=== PATIENT | female | born 1985 | race Caucasian/White ===

== ENCOUNTER → 2018-08-24 12:06 | Outpatient (CLI) | payer OTHER, SELFPAY ==
[2018-08-24 13:04] LABS: Add Manual Diff / Slide Review NO; Basophils Absolute Auto 0 /uL (0-100); Basophils Percent Auto 0.5 % (0-2); Eosinophils Absolute Auto 100 /uL (0-450); Eosinophils Percent Auto 0.9 % (2-4); Hematocrit 40.6 % (36-46); Hemoglobin 13.5 g/dL (12.0-16.0); Lymphocytes Absolute Auto 2600 /uL (1100-4500); Lymphocytes Percent Auto 28.4 % (25-40); Mean Corpuscular HGB Conc 33.2 % (30-36); Mean Corpuscular Hemoglobin 30.2 PG (26-34); Mean Corpuscular Volume 90.7 fL (80-100); Monocytes Absolute Auto 600 /uL (0-900); Neutrophils Absolute Auto 5800 /uL (1500-7000); Neutrophils Percent Auto 63.2 % (50-75); Platelet Count 260 X10^3/uL (150-400); Red Blood Cell Count 4.48 X10^6/uL (4.0-5.2); Red Cell Distribution Width 13.2 % (11.6-14.8); White Blood Cell Count 9.1 X10^3/uL (4.5-11.0)
[2018-08-24 13:04] LABS: Appearance Urine UA CLEAR; Bilirubin Urine UA NEGATIVE (NEGATIVE); Color Urine UA YELLOW; Glucose Urine UA NEGATIVE (Negative); Ketones Urine UA NEGATIVE (NEGATIVE); Leukocyte Esterase Urine UA NEGATIVE (NEGATIVE); Nitrite Urine UA NEGATIVE (Negative); Occult Blood Urine UA NEGATIVE (Negative); Protein Urine UA NEGATIVE (Negative); Specific Gravity Urine UA 1.025 (1.000-1.035); Urobilinogen Urine UA 0.2 E.U./dL (0.2); pH Urine UA 5.5 (4.5-8.0)
[2018-08-24 13:45] LABS: Thyroid Stimulating Hormone 1.65 uIU/mL (0.47-4.68)
[2018-08-24 18:29] LABS: Hepatitis B Surface Antigen NEGATIVE s/c (NEGATIVE); Rubella Antibody IgG 22.7 IU/mL (>15)
[2018-08-24 18:42] LABS: HIV 1 and 2 Antibody NEGATIVE (NEGATIVE); Hep C Virus Ab w/Reflex Quant NEGATIVE s/c (NEGATIVE)
[2018-08-26 14:36] LABS: RPR Screen Nonreactive (Nonreactive)
[2018-08-26 14:42] LABS: Varicella IgG Antibody < 135.00 Index (< 135.00)
== END ==
PROVIDERS: PCP Nurse Practitioner Family; Visit Provider Specialist
DX: Z34.01 Encounter for supervision of normal first pregnancy, first trimester (principal)
CPT/HCPCS: 36415; 80055; 81003; 84443; 86703; 86787; 86803; 86850; 86900; 86901; 87086

== ENCOUNTER → 2018-11-02 12:23 | Outpatient (CLI) | payer OTHER, SELFPAY ==
[2018-11-09 10:45] LABS: AFP, Serum 22.6 ng/mL; Calc Gestational Age 17.9; Cigarette Smoker N; Donated Egg NOT GIVEN; Donor Egg Age NOT GIVEN; Inhibin A, Dimeric 101 pg/mL; Maternal Weight 205 lbs; Number of Fetuses NOT GIVEN; Previous Pregnancy Down Syndro NOT GIVEN; hCG, MoM 1.24; hCG, Serum 25.6 IU/mL
== END ==
PROVIDERS: PCP Nurse Practitioner Family; Visit Provider Specialist
DX: Z34.82 Encounter for supervision of other normal pregnancy, second trimester (principal); Z3A.18 18 weeks gestation of pregnancy
CPT/HCPCS: 36415; 82105; 82677; 84702; 86336

== ENCOUNTER → 2018-11-17 10:19 | Outpatient (CLI) | payer OTHER, SELFPAY ==
--- NOTE | 2018-11-17 10:20 | DI.US.S_ITS ---
PROCEDURE: US OB >= 14 WEEKS FETUS INDICATIONS: ANATOMY SCAN OUTSIDE/PRIOR DATING DATA: Last menstrual period (LMP): Unknown. LMP-based estimated date of delivery (NICOLAS): Unknown. First dating scan (date and location): 08/24/18. Estimated date of delivery (NICOLAS) from first dating scan: 04/08/19. TECHNIQUE: Real-time scanning was performed of the fetus, with image documentation and biometric measurements. Endovaginal scanning: Not performed COMPARISON: [facility], , OB <= 14 WEEKS FETUS, 09/07/2018, 13:32. [facility], , OB <= 14 WEEKS FETUS, 08/24/2018, 8:07. [facility], , OB >= 14 WEEKS FETUS, 11/02/2018, 12:13. FINDINGS: General: A single living intrauterine gestation is present. Presentation: Vertex. Placenta: Placental position is anterior, without previa. Amniotic fluid index: 14.4 cm, normal range is 5-24 cm. heart rate: 157 beats per minute. Maternal cervical canal: 3.8 cm long. Normal lower limit is 2.5 cm. biometrics: Biparietal diameter: 4.7 cm, 20 weeks 2 days Head circumference: 17.1 cm, 19 weeks 5 days Abdominal circumference: 14.5 cm of 19 weeks 6 days Femur length: 3.0 cm, 19 weeks 3 days Estimated gestational age from initial scan: 19 weeks 2 days Composite gestational age from present scan: 19 weeks 5 days Estimated weight and percentile: 305 g, 67th percentile Measurement variability for biometric dating: +/- 7 days from 14 weeks to 15 weeks 6 days gestation, +/- 10 days from 16 weeks to 21 weeks 6 days gestation, +/- 2 weeks from 22 weeks to 27 weeks 6 days gestation, +/- 3 weeks for 28 weeks gestation or later. weight reference: 4500 g or EFW >90/95% is considered macrosomia or large for gestational age. EFW <10% is small for gestational age. EFW 5% or less is considered intra-uterine growth restriction. Anatomic survey: Neuro: Ventricles are non-dilated at less than 10 mm. Cisterna magna is normal at 3-11 mm. Cerebellum is normal in size and morphology. Nuchal skin fold: Normal at less than 6 mm between 14-21 weeks gestational age. Face: Nose and lips, facial profile are normal. Spine: No evidence for spina bifida. Heart: 4-chambered heart is present, with normal ventricular outflow tracts. Diaphragm: Diaphragm is intact. Stomach: Left-sided stomach is present. Kidneys: No hydronephrosis. Normal is less than 5 mm in 2nd trimester, less than 7 mm in 3rd trimester. Cord: 3-vessel cord has orthotopic insertion. Bladder: Normal in size. Extremities: All 4 extremities identified. IMPRESSION: Single living intrauterine fetus in vertex presentation. Expected interval growth Normal anatomic survey. Dictated by: Jeremiah Ahumada M.D. on 11/17/2018 at 12:43 Approved by: Jeremiah Ahumada M.D. on 11/17/2018 at 12:46
== END ==
PROVIDERS: PCP Nurse Practitioner Family; Visit Provider Specialist
DX: Z36.89 Encounter for other specified antenatal screening (principal); Z3A.19 19 weeks gestation of pregnancy
CPT/HCPCS: 76811

== ENCOUNTER → 2018-12-24 10:12 | Outpatient (CLI) | payer OTHER, SELFPAY ==
[2018-12-24 12:21] LABS: GTT (PREG) 1 Hour PP 50gm Dose 133 mg/dL (76-139)
== END ==
PROVIDERS: PCP Nurse Practitioner Family; Visit Provider Specialist
DX: Z34.82 Encounter for supervision of other normal pregnancy, second trimester (principal); Z3A.22 22 weeks gestation of pregnancy
CPT/HCPCS: 82950

== ENCOUNTER → 2019-01-04 15:46 | Outpatient (CLI) | payer OTHER, SELFPAY ==
[2019-01-04 16:03] LABS: Hematocrit 35.7 % (36-46); Hemoglobin 12.3 g/dL (12.0-16.0)
== END ==
PROVIDERS: Family Provider Nurse Practitioner Family; PCP Nurse Practitioner Family; Visit Provider Specialist
DX: Z34.82 Encounter for supervision of other normal pregnancy, second trimester (principal); Z3A.26 26 weeks gestation of pregnancy
CPT/HCPCS: 36415; 85014; 85018

== ENCOUNTER 2019-02-10 15:09 | Outpatient (CLI) | payer OTHER, SELFPAY ==
--- NOTE | 2019-02-10 16:05 | PM.OBTRLD ---
Visit Information Visit Information Date of evaluation: 02/10/19 Primary OB Provider: Stacey Harry Reason for Evaluation: Yes non-stress test non-stress test reason: decreased movement Vital Signs Vital Signs: Blood pressure 133/86, pulse of 81, temperature 36.5? [facility] Medical History (Updated 02/10/19 @ 16:07 by Stacey Harry MD) Human papilloma virus (Resolved ~2012) PCOS (polycystic ovarian syndrome) (Chronic) Surgical History (Updated 09/06/18 @ 22:23 by Cinthia Goldberg) Anesthesia (Resolved) History of dilatation and curettage (Resolved ~04/2018) Family History (Updated 09/06/18 @ 22:24 by Cinthia Goldberg) Father Hypertension Grandfather Parkinson's disease Social History Smoking Status: Never smoker Evaluation Evaluation Baseline heart rate: 130 Variability: Moderate (11-25) monitor accelerations: Present monitor decelerations: Absent Contraction Frequency (minutes): 0 Diagnosis, Plan/Disposition Final Diagnosis (1) Decreased movement: Current Visit: Yes Status: Acute (2) 32 weeks gestation of : Current Visit: Yes Status: Acute Plan/Disposition Plan: Reassurance keep routine OB appointment in 5 days. Return if any concerns prior to that OB Disposition: home
== END 2019-02-10 16:17 | disposition home or self-care (01) ==
LOC: LABOR 15:51 → OB 02-13 08:20
PROVIDERS: Family Provider Nurse Practitioner Family; PCP Nurse Practitioner Family; Visit Provider Specialist
DX: O36.8130 Decreased fetal movements, third trimester, not applicable or unspecified (principal); Z3A.32 32 weeks gestation of pregnancy
CPT/HCPCS: 59025; G0378; G0379

== ENCOUNTER 2019-02-22 17:31 | Outpatient (CLI) | payer OTHER, SELFPAY ==
[2019-02-22 17:42] LABS: Appearance Urine UA CLEAR; Bilirubin Urine UA NEGATIVE (NEGATIVE); Color Urine UA YELLOW; Glucose Urine UA NEGATIVE (Negative); Ketones Urine UA NEGATIVE (NEGATIVE); Leukocyte Esterase Urine UA NEGATIVE (NEGATIVE); Nitrite Urine UA NEGATIVE (Negative); Occult Blood Urine UA NEGATIVE (Negative); Protein Urine UA NEGATIVE (Negative); Urobilinogen Urine UA 0.2 E.U./dL (0.2)
[2019-02-22 17:45] LABS: pH Urine UA 6.5 (4.5-8.0)
== END 2019-02-22 18:40 | disposition home or self-care (01) ==
LOC: LABOR 18:20 → OB 02-23 11:48
PROVIDERS: Family Medicine; Family Provider Nurse Practitioner Family; PCP Nurse Practitioner Family; Visit Provider Specialist
DX: O26.893 Other specified pregnancy related conditions, third trimester (principal); R03.0 Elevated blood-pressure reading, without diagnosis of hypertension; Z3A.33 33 weeks gestation of pregnancy
CPT/HCPCS: 59025; 81003; G0378; G0379

== ENCOUNTER → 2019-03-08 15:40 | Outpatient (CLI) | payer OTHER, SELFPAY ==
[2019-03-09 13:05] LABS: Strep Grp B PCR NEG for Grp B Strep
== END ==
PROVIDERS: Family Provider Nurse Practitioner Family; PCP Nurse Practitioner Family; Visit Provider Specialist
DX: Z34.83 Encounter for supervision of other normal pregnancy, third trimester (principal)
CPT/HCPCS: 87653

== ENCOUNTER 2019-03-31 16:20 | Inpatient (IN) | payer OTHER, SELFPAY ==
[2019-03-31 16:49] LABS: Add Manual Diff / Slide Review NO; Basophils Absolute Auto 0 /uL (0-100); Basophils Percent Auto 0.3 % (0-2); Eosinophils Absolute Auto 100 /uL (0-450); Eosinophils Percent Auto 0.5 % (2-4); Hematocrit 37.4 % (36-46); Hemoglobin 12.8 g/dL (12.0-16.0); Lymphocytes Absolute Auto 2400 /uL (1100-4500); Lymphocytes Percent Auto 21.7 % (25-40); Mean Corpuscular HGB Conc 34.3 % (30-36); Mean Corpuscular Hemoglobin 30.4 PG (26-34); Mean Corpuscular Volume 88.7 fL (80-100); Monocytes Absolute Auto 700 /uL (0-900); Monocytes Percent Auto 6.1 % (3-14); Neutrophils Absolute Auto 7800 /uL (1500-7000); Neutrophils Percent Auto 71.4 % (50-75); Platelet Count 263 X10^3/uL (150-400); Red Blood Cell Count 4.22 X10^6/uL (4.0-5.2); Red Cell Distribution Width 13.8 % (11.6-14.8); White Blood Cell Count 10.9 X10^3/uL (4.5-11.0)
[2019-03-31 17:09] LABS: Alanine Aminotransferase 16 IU/L (<35); Albumin Globulin Ratio 1.2 (1.0-2.8); Alkaline Phosphatase 134 U/L (38-126); Aspartate Aminotransferase 25 IU/L (14-36); BUN Creatinine Ratio 21.7 (6-22); Bilirubin Total 0.3 mg/dL (0.2-1.3); Blood Urea Nitrogen 13 mg/dL (7-17); Calcium 9.5 mg/dL (8.4-10.2); Carbon Dioxide 21 mmol/L (22-32); Chloride 102 mmol/L (98-107); Estimated Glomerular Filt Rate > 60.0 mL/min (>60); Globulin 3.4 g/dL (1.7-4.1); Glucose 120 mg/dL (70-100); HEMOLYSIS < 15 (0-50); Potassium 4.4 mmol/L (3.4-5.1); Sodium 135 mmol/L (137-145); Total Protein 7.4 g/dL (6.3-8.2); Uric Acid 4.2 mg/dL (2.5-6.2)
--- NOTE | 2019-03-31 17:22 | PM.OBHP.1 ---
OB HPI Date/Time Date of admission: 03/31/19 Date Patient Seen: 03/31/19 Time Patient Seen: 17:22 History of Present Condition Chief complaint: OBSERVATION : 2 Para: 0 Estimated Date of Delivery: 04/06/19 Estimated Gestational Age (weeks): 39 Narrative: Nu Harris is a 33 year old female admitted for hypertension at 39 weeks Indications Indication for induction OB: medical complication (Hypertension without other evidence of preeclampsia) History of Present care: good care, initiated at week # (9) and pounds weight gain (37) Dating criteria: LMP confirmed by 1st trimester US Ultrasounds: normal mid trimester US Obstetrical complications: gestational hypertension Medical complications: none Preadmission Labs Blood type: AB (+) positive -: Antibody screen: negative, GBS status: negative, HBsAG: negative, HIV: negative and RPR/VDLR: negative -: Chlamydia screen: not detected and Gonorrhea screen: not detected -: Rubella: immune and Varicella: not immune HCAB: negative PAP: Normal Quad screen: Normal 1 hr GTT: 133 Evaluation Evaluation Baseline heart rate: 140 Variability: Moderate (11-25) monitor accelerations: Present monitor decelerations: Absent Contraction Frequency (minutes): 0 Category of Tracing: I Cervical dilation (cm): 1 Cervical effacement (%): 0 station: -2 Laboratory results: Laboratory Tests 03/31/19 03/31/19 16:42 16:42 WBC 10.9 RBC 4.22 Hgb 12.8 Hct 37.4 MCV 88.7 MCH 30.4 MCHC 34.3 RDW 13.8 Plt Count 263 Neut % (Auto) 71.4 Lymph % (Auto) 21.7 L [place] % (Auto) 6.1 Eos % (Auto) 0.5 L Baso % (Auto) 0.3 Neut # (Auto) 7800 H Lymph # (Auto) 2400 [place] # (Auto) 700 Eos # (Auto) 100 Baso # (Auto) 0 Sodium 135 L Potassium 4.4 Chloride 102 Carbon Dioxide 21 L BUN 13 Creatinine 0.60 Estimated GFR > 60.0 BUN/Creatinine Ratio 21.7 Glucose 120 H Uric Acid 4.2 Calcium 9.5 Total Bilirubin 0.3 AST 25 ALT 16 Alkaline Phosphatase 134 H Total Protein 7.4 Albumin 4.0 Globulin 3.4 Albumin/Globulin Ratio 1.2 PFSH Medical History (Updated 03/31/19 @ 16:19 by Stacey Harry MD) Human papilloma virus (Resolved ~2012) PCOS (polycystic ovarian syndrome) (Chronic) Surgical History (Updated 09/06/18 @ 22:23 by Cinthia Goldberg) Anesthesia (Resolved) History of dilatation and curettage (Resolved ~04/2018) Family History (Updated 09/06/18 @ 22:24 by Cinthia Goldberg) Father Hypertension Grandfather Parkinson's disease Social History Smoking Status: Never smoker Meds Home Medications and Allergies Home Medications Medication Instructions Recorded Confirmed Type vitamins no.121-iron 28 tab PO DAILY tab 08/24/18 08/24/18 History mg-folic acid 800 mcg tablet butalbital 50 mg-acetaminophen 300 1 cap PO Q4H PRN #20 cap 10/05/18 Rx mg-caffeine 40 mg-codeine 30 mg cap Double Electric Breast Pump and #1 ea 12/07/18 Rx supplies Allergies Allergy/AdvReac Type Severity Reaction Status Date / Time codeine Allergy Intermediate cold sweats Verified 08/24/18 07:57 Penicillins Allergy Intermediate rash Verified 08/24/18 07:57 acetaminophen [From Vicodin] AdvReac Intermediate Cold sweats Verified 08/24/18 12:09 hydrocodone [From Vicodin] AdvReac Intermediate Cold sweats Verified 08/24/18 12:09 Review of Systems Review of Systems Narrative: Patient denies headaches, scotomata, epigastric pain. No leakage of fluid. No regular contractions. Good movement. ROS Unobtainable: All systems reviewed & are unremarkable except as noted in HPI and below Exam Vital Signs (past 8 hours): Blood pressure 140/102, Narrative Exam Narrative: HEENT exam within normal limits. Lungs are clear to auscultation and percussion. Heart is regular rate and rhythm no S3-S4 or murmurs. Abdomen is soft, nontender. Infant is vertex. Extremities with trace edema and nontender. Objective Labs Result Diagrams: 03/31/19 16:42 03/31/19 16:42 Labs: Laboratory Results - last 24 hr 03/31/19 03/31/19 16:42 16:42 WBC 10.9 RBC 4.22 Hgb 12.8 Hct 37.4 MCV 88.7 MCH 30.4 MCHC 34.3 RDW 13.8 Plt Count 263 Neut % (Auto) 71.4 Lymph % (Auto) 21.7 L [place] % (Auto) 6.1 Eos % (Auto) 0.5 L Baso % (Auto) 0.3 Neut # (Auto) 7800 H Lymph # (Auto) 2400 [place] # (Auto) 700 Eos # (Auto) 100 Baso # (Auto) 0 Sodium 135 L Potassium 4.4 Chloride 102 Carbon Dioxide 21 L BUN 13 Creatinine 0.60 Estimated GFR > 60.0 BUN/Creatinine Ratio 21.7 Glucose 120 H Uric Acid 4.2 Calcium 9.5 Total Bilirubin 0.3 AST 25 ALT 16 Alkaline Phosphatase 134 H Total Protein 7.4 Albumin 4.0 Globulin 3.4 Albumin/Globulin Ratio 1.2 Assessment and Plan Assessment and Plan Assessment and Plan narrative: 39 week gestation with hypertension but no other signs or symptoms of preeclampsia. Non favorable cervix. Will admit for Prostin followed by Pitocin induction. Monitor for evidence of preeclampsia.
[2019-03-31 17:29] VITALS: BP 144/102; PULSE 102
[2019-03-31] MEDS: LABETALOL 100 MG TABLET PO (17:29)
[2019-03-31 19:02] VITALS: BP 140/98
[2019-03-31] MEDS: miSOPROStoL 25 MCG TABLET VAG (20:17)
[2019-03-31 23:51] VITALS: BP 118/71; PULSE 88; RESP 16
[2019-04-01] MEDS: miSOPROStoL 25 MCG TABLET VAG ×2 (00:16→04:20)
[2019-04-01] MEDS: ACETAMINOPHEN 325 MG TABLET 650 MG PO (00:22)
[2019-04-01] MEDS: LACTATED RINGERS 1,000 ML 100 ML IV (09:05)
[2019-04-01] MEDS: OXYTOCIN PREMIX 30 UNIT/500 ML PLAST..BAG IV (09:34)
--- NOTE | 2019-04-01 22:17 | P.PCNOB_ITS ---
Events: Induced HTN Labor & Delivery Delivery date: 04/01/19 Intrapartal events: None Cervical ripening method: per misoprostal protocol Induction method: per pitocin protocol Delivery monitor: external FHT and external uterine Route of delivery: L&D Laceration Description: Vaginal - 1st Degree Delivery repair: chromic (3 0) Estimated blood loss (mL): 150 Anesthesia type: Epidural Narrative: Patient was admitted to Labor and delivery with increasing blood pressures without other signs or symptoms of preeclampsia. She received prostate gland in for cervical ripening. She was started on Pitocin. She had spontaneous rupture membranes with clear fluid. She received epidural catheter for pain control. heart tones category 1 to category 2 throughout labor. She had a spontaneous vaginal delivery. The viable female infant had a nuchal cord and compound presentation with the hand. The was placed on maternal abdomen after the cord stopped pulsating the cord was clamped, cut, and cord bloods obtained. There were no cervical or perineal tears. A first-degree vaginal tear was repaired with 3 0 chromic suture. Both mother doing well. [place] Baby 1: Infant gender: Female Presentation: vertex position: Right Occiput Anterior Placenta delivery description: Spontaneous cord vessel description: Nuchal Cord score (1 min): 8 score (5 min): 9 Plan for aftercare: Routine care
[2019-04-01] MEDS: IBUPROFEN 600 MG TABLET PO (23:45)
[2019-04-02] MEDS: IBUPROFEN 600 MG TABLET PO ×3 (05:43→21:44)
[2019-04-02 06:12] LABS: Add Manual Diff / Slide Review NO; Basophils Absolute Auto 100 /uL (0-100); Basophils Percent Auto 0.7 % (0-2); Eosinophils Absolute Auto 100 /uL (0-450); Eosinophils Percent Auto 0.5 % (2-4); Hematocrit 33.6 % (36-46); Hemoglobin 11.6 g/dL (12.0-16.0); Lymphocytes Absolute Auto 2700 /uL (1100-4500); Lymphocytes Percent Auto 16.5 % (25-40); Mean Corpuscular HGB Conc 34.5 % (30-36); Mean Corpuscular Hemoglobin 30.2 PG (26-34); Mean Corpuscular Volume 87.4 fL (80-100); Monocytes Absolute Auto 1400 /uL (0-900); Monocytes Percent Auto 8.4 % (3-14); Neutrophils Absolute Auto 12000 /uL (1500-7000); Neutrophils Percent Auto 73.9 % (50-75); Platelet Count 235 X10^3/uL (150-400); Red Blood Cell Count 3.84 X10^6/uL (4.0-5.2); Red Cell Distribution Width 14.1 % (11.6-14.8); White Blood Cell Count 16.3 X10^3/uL (4.5-11.0)
--- NOTE | 2019-04-02 10:32 | PM.OBPN.1 ---
Subjective - OB Subjective Patient comments: no complaints [place] baby status: doing well feeding status: exclusively breast feeding Date Patient Seen: 04/02/19 Time Patient Seen: 10:32 Interval history: Patient is 12 hours post vaginal delivery doing well. She denies any signs or symptoms of preeclampsia. She is breast-feeding. She has minimal pain. Minimal bleeding. She is ambulatory. Exam Vital Signs (past 8 hours): Blood pressure 109/76 with 1 increased blood pressure 170/83, pulse of 109, temperature 97.1? Narrative Exam Narrative: Abdomen is soft, nontender. Uterus is firm, at U, nontender. Extremities without edema and nontender. Mild lochia. Objective Labs Result Diagrams: 04/02/19 06:00 03/31/19 16:42 Labs: Laboratory Results - last 24 hr 04/02/19 06:00 WBC 16.3 H RBC 3.84 L Hgb 11.6 L Hct 33.6 L MCV 87.4 MCH 30.2 MCHC 34.5 RDW 14.1 Plt Count 235 Neut % (Auto) 73.9 Lymph % (Auto) 16.5 L [place] % (Auto) 8.4 Eos % (Auto) 0.5 L Baso % (Auto) 0.7 Neut # (Auto) 94570 H Lymph # (Auto) 2700 [place] # (Auto) 1400 H Eos # (Auto) 100 Baso # (Auto) 100 Assessment & Plan Assessment and Plan (1) Vaginal delivery: Status: Acute Current Visit: Yes (2) Hypertension affecting in third trimester: Status: Acute Assessment and plan: Patient is doing well post vaginal delivery. Her blood pressures are good. Will monitor until a.m.. Current Visit: No Plan day: 1 plan OB: routine care Time Spent With Patient Time: Total time spent is greater than 50% in coordination of care (as documented) at patient's floor/unit and/or counseling patient: Time with patient: less than 15 minutes
[2019-04-03] MEDS: IBUPROFEN 600 MG TABLET PO ×2 (04:02→10:04)
--- NOTE | 2019-04-03 07:41 | PM.OBDS.1 ---
Discharge Providers Provider Date of admission: 03/31/19 16:20 Discharge Date: 04/03/19 Primary care physician: GALDINO Altman Consults: 03/31/19 17:34 Consult to Anesthesiology Urgent Comment: Consulting Provider: Anesthesiologist Reason for consultation: Epidural Has provider been notified: No 04/02/19 22:13 Consult to Operations Project Manager Routine Comment: Discharge provider: Stacey Harry MD Summary Hospital Course Date Patient Seen: 04/03/19 Time Patient Seen: 07:41 Procedures: Prostin followed by Pitocin induction, epidural catheter, spontaneous vaginal delivery, repair of first-degree vaginal tear Hospital Course: Patient was admitted for elevated blood pressure for induction. She received oral labetalol for blood pressure control. After her Prostin followed by Pitocin she had a vaginal delivery. Patient's blood pressures have remained reasonable without medication. No signs or symptoms of preeclampsia. Patient is urinating well, ambulatory, and pain under control. Peripartum Data Delivery Method: Natural Vaginal Laceration description: Vaginal - 1st Degree Procedures: Prostin followed by Pitocin induction, epidural catheter, vaginal delivery, repair of first-degree vaginal tear. complications: none 1: Gender: Female Disposition of : home Discharge Diagnosis (1) Vaginal delivery: Status: Acute (2) Hypertension affecting in third trimester: Status: Acute Status at Discharge Cognitive/behavioral status at discharge: oriented Functional status at discharge: independent ambulation Overall status at discharge: patient is progressing back to baseline Time Spent with Patient Time attestation: Total time spent providing and/or coordinating discharge services: Time spent: Less than 30 minutes Objective Labs Result Diagrams: 04/02/19 06:00 03/31/19 16:42 Exam Vital Signs (past 8 hours): Blood pressure 120/84, pulse of 77, temperature 97.4? Narrative Exam Narrative: Abdomen is soft, nontender. Uterus is firm, at U, nontender. Mild lochia. Extremities without edema and nontender. Patient is AB positive and rubella immune. She received Tdap in the 3rd trimester. Discharge Plan Discharge Plan Patient Disposition: Home Discharge orders & Medications Prescriptions: New ibuprofen 600 mg Tablet 600 mg PO Q6HR PRN (Reason: Pain, Mild (1-3)) Qty: 20 RF: 0 Continued PNV no.203-diek-egpwy acid 28 mg iron- 800 mcg tablet 1 tab PO DAILY RF: 0 No Action (DME) Double Electric Breast Pump and supplies Qty: 1 RF: 0 Follow up/Referrals: Alisha Serra ARNP [Primary Care Provider] - Stacey Harry MD [Physician] - 3-5 Days (BP check, also 4 week exam) Diet/Activity/Treatments Activity: Nothing in vagina for 4 weeks Skin/Wound/Dressing Care Report to your healthcare provider any signs of infection, such as:: chills, fever and increased pain Discharge Data Primary Care Provider: Alisha Serra
[2019-04-03 09:34] VITALS: BP 112/67; PULSE 75; RESP 16; TEMP 36.2
[2019-04-03] MEDS: DOCUSATE 100 MG CAPSULE PO (10:04)
[2019-04-03] MEDS: DERMOPLAST SPRAY 20% 60 ML 1 SPRAY TOP (10:04)
== END 2019-04-03 11:41 | disposition home or self-care (01) | DRG 807 ==
PROVIDERS: Admitting Provider Specialist; Family Provider Nurse Practitioner Family; PCP Nurse Practitioner Family; Visit Provider Specialist
DX: O13.4 Gestational [pregnancy-induced] hypertension without significant proteinuria, complicating childbirth (principal); Z37.0 Single live birth; Z3A.39 39 weeks gestation of pregnancy; O70.1 Second degree perineal laceration during delivery; O69.81X0 Labor and delivery complicated by cord around neck, without compression, not applicable or unspecified; O32.6XX0 Maternal care for compound presentation, not applicable or unspecified
CPT/HCPCS: 01967; 36415; 59025; 59050; 59400; 80053; 84550; 85025; 86850; 86900; 86901; G0379; J2590

== ENCOUNTER → 2021-02-13 09:08 | Outpatient (CLI) | payer OTHER, SELFPAY ==
--- NOTE | 2021-02-13 | DI.US.S_ITS ---
PROCEDURE: US OB <= 14 WEEKS FETUS INDICATIONS: DATING OUTSIDE/PRIOR DATING DATA: Last menstrual period (LMP): Unknown. First dating scan (date and location): [facility]; February 13, 2021: Estimated date of delivery (NICOLAS) from first dating scan: September 30, 2021. TECHNIQUE: Real-time scanning was performed of the fetus and maternal pelvic organs, with image documentation. Endovaginal scanning was also performed to better visualize the fetus and maternal ovaries. COMPARISON: [facility], US, US OB <= 14 WEEKS FETUS, 09/07/2018, 13:32. FINDINGS: Embryo: The mean crown-rump length measures 1.1 cm, compatible with a 7 week, 2 day gestation. Heart rate: 160 beats per minute Measurement variability in dating: +/- 4 weeks by LMP, +/- 7 days by mean sac diameter (use before 6 weeks gestation if crown-rump length not able to be measured), +/- 5 days by crown-rump length (up to 8 weeks 6 days gestation), +/- 7 days by crown-rump length (up to 13 weeks 6 days gestation). Maternal organs: Hypoechoic lesion adjacent to the gestational sac measuring up to 8.5 mm, compatible with a subchorionic hemorrhage. Echogenic lesion in the right ovary, measuring up to 1.9 cm, likely representing a corpus luteum. The left ovary is unremarkable. IMPRESSION: 1. Early single intrauterine gestation with adjacent subchorionic hemorrhage as detailed above. Dictated by: Tristian Shoemaker M.D. on 02/13/2021 at 12:51 Approved by: Tristian Shoemaker M.D. on 02/13/2021 at 12:55
== END ==
PROVIDERS: Family Provider Nurse Practitioner Family; PCP Nurse Practitioner Family; Referring Provider Nurse Practitioner Obstetrics & Gynecology; Visit Provider Nurse Practitioner Obstetrics & Gynecology
DX: Z36.87 Encounter for antenatal screening for uncertain dates (principal); O20.9 Hemorrhage in early pregnancy, unspecified; Z3A.01 Less than 8 weeks gestation of pregnancy
CPT/HCPCS: 76801; 76817

== ENCOUNTER → 2021-05-12 08:01 | Outpatient (CLI) | payer OTHER, SELFPAY ==
[2021-05-12 09:09] LABS: Glucose Fasting 89 mg/dL (70-100)
[2021-05-12 09:54] LABS: Glucose 1 Hour 115 mg/dL (70-170)
[2021-05-12 10:24] LABS: Glucose Tol Interpretation INTERPRETATION
[2021-05-12 10:50] LABS: Glucose 2 Hour 99 mg/dL (70-140)
== END ==
PROVIDERS: Family Provider Nurse Practitioner Family; PCP Nurse Practitioner Family; Referring Provider Nurse Practitioner Obstetrics & Gynecology; Visit Provider Nurse Practitioner Obstetrics & Gynecology
DX: Z34.90 Encounter for supervision of normal pregnancy, unspecified, unspecified trimester (principal); Z3A.19 19 weeks gestation of pregnancy
CPT/HCPCS: 36415; 82951; 82952

== ENCOUNTER → 2021-05-14 10:40 | Outpatient (CLI) | payer OTHER, SELFPAY ==
--- NOTE | 2021-05-14 10:42 | DI.US.S_ITS ---
PROCEDURE: US OB >= 14 WEEKS FETUS INDICATIONS: 20 WEEK ANATOMY SCAN OUTSIDE/PRIOR DATING DATA: Last menstrual period (LMP): Not available. LMP-based estimated date of delivery (NICOLAS): Not available. First dating scan (date and location): 02/13/2021 at . Estimated date of delivery (NICOLAS) from first dating scan: 09/30/2021. The calculations are made using the ultrasound NICOLAS of 09/30/2021. TECHNIQUE: Real-time scanning was performed of the fetus, with image documentation and biometric measurements. Endovaginal scanning: Not performed COMPARISON: [facility], , OB >= 14 WEEKS FETUS, 02/15/2019, 15:43. [facility], OB <= 14 WEEKS FETUS, 02/13/2021, 9:22. [facility], , OB >= 14 WEEKS FETUS, 01/04/2019, 15:21. FINDINGS: Suboptimally examination due to patient's body habitus. General: A single living intrauterine gestation is present. Presentation: Vertex. Placenta: Placental position is anterior , without previa. Amniotic fluid index: 13.5 cm, normal range is 5-24 cm. Single deepest vertical pocket is 3.6 cm. heart rate: 157 beats per minute. Maternal cervical canal: 4.6 cm long. Normal lower limit is 2.5 cm. biometrics: Biparietal diameter: 21 weeks 2 days Head circumference: 21 weeks 0 day Abdominal circumference: 20 weeks 3 days Femur length: 20 weeks 2 days Clinically estimated gestational age: Not available. Composite gestational age from present scan: 20 weeks 5 days Estimated weight and percentile: 354 g Anatomic survey: Neuro: Ventricles are non-dilated at less than 10 mm. Cisterna magna is normal at 3-11 mm. Cerebellum is normal in size and morphology. Nuchal skin fold: Normal at less than 6 mm between 14-21 weeks gestational age. Face: Nose and lips, facial profile are normal. Spine: No evidence for spina bifida. Heart: 4-chambered heart is present, with normal ventricular outflow tracts. Diaphragm: Diaphragm is intact. Stomach: Left-sided stomach is present. Kidneys: No hydronephrosis. Normal is less than 5 mm in 2nd trimester, less than 7 mm in 3rd trimester. Cord: Question superior marginal cord insertion. 3-vessel cord has orthotopic insertion. Bladder: Normal in size. Extremities: All 4 extremities identified. IMPRESSION: 1. A single living intrauterine gestation with appropriate interval growth. 2. Question superior marginal cord insertion. 3. Otherwise normal anatomic survey. We strive to produce accurate, complete, and clear reports of imaging services. To assist us in improving patient care, this report was composed using standard report templates and voice recognition software. Therefore, it may contain abnormal punctuation, insertions and/or omissions. Occasional wrong-word or sound-alike substitutions may occur. Though we review the report and make efforts to correct it, we do recommend that the report be read carefully in proper context to recognize any text inaccuracies. Dictated by: Sebastien Garg M.D. on 05/14/2021 at 16:14 Approved by: Sebastien Garg M.D. on 05/16/2021 at 17:33
== END ==
PROVIDERS: Family Provider Nurse Practitioner Family; PCP Nurse Practitioner Family; Referring Provider Nurse Practitioner Obstetrics & Gynecology; Visit Provider Nurse Practitioner Obstetrics & Gynecology
DX: Z34.92 Encounter for supervision of normal pregnancy, unspecified, second trimester (principal); Z3A.20 20 weeks gestation of pregnancy
CPT/HCPCS: 76811

== ENCOUNTER → 2021-07-09 08:05 | Outpatient (CLI) | payer OTHER, SELFPAY ==
[2021-07-09 08:47] LABS: Hematocrit 36.1 % (36-46); Hemoglobin 12.4 g/dL (12.0-16.0); Mean Corpuscular HGB Conc 34.4 % (30-36); Mean Corpuscular Hemoglobin 30.6 PG (26-34); Mean Corpuscular Volume 88.9 fL (80-100); Platelet Count 263 X10^3/uL (150-400); Red Blood Cell Count 4.06 X10^6/uL (4.0-5.2); Red Cell Distribution Width 13.9 % (11.6-14.8); White Blood Cell Count 10.3 X10^3/uL (4.5-11.0)
[2021-07-09 09:05] LABS: Glucose Fasting 87 mg/dL (70-100)
[2021-07-09 10:27] LABS: Glucose Tol Interpretation INTERPRETATION
[2021-07-09 10:42] LABS: Glucose 1 Hour 127 mg/dL (70-170)
[2021-07-09 12:38] LABS: Glucose 2 Hour 112 mg/dL (70-140)
== END ==
PROVIDERS: Family Provider Nurse Practitioner Family; PCP Nurse Practitioner Family; Referring Provider Nurse Practitioner Obstetrics & Gynecology; Visit Provider Nurse Practitioner Obstetrics & Gynecology
DX: Z34.90 Encounter for supervision of normal pregnancy, unspecified, unspecified trimester (principal); Z3A.26 26 weeks gestation of pregnancy
CPT/HCPCS: 36415; 82951; 82952; 85027

== ENCOUNTER → 2021-09-03 19:22 | Outpatient (ROUT) | payer OTHER, SELFPAY | PROVIDERS: Family Provider Nurse Practitioner Family; PCP Nurse Practitioner Family; Visit Provider Nurse Practitioner Obstetrics & Gynecology | DX: Z34.93 Encounter for supervision of normal pregnancy, unspecified, third trimester; Z36.85 Encounter for antenatal screening for Streptococcus B; Z3A.36 36 weeks gestation of pregnancy | CPT/HCPCS: 87081 ==

== ENCOUNTER 2021-09-10 15:23 | Outpatient (CLI) | payer OTHER, SELFPAY ==
[2021-09-10 16:04] LABS: Add Manual Diff / Slide Review NO; Basophils Absolute Auto 100 /uL (0-100); Basophils Percent Auto 0.8 % (0-2); Eosinophils Absolute Auto 100 /uL (0-450); Eosinophils Percent Auto 0.9 % (2-4); Hematocrit 34.9 % (36-46); Lymphocytes Absolute Auto 2300 /uL (1100-4500); Lymphocytes Percent Auto 21.5 % (25-40); Mean Corpuscular HGB Conc 34.5 % (30-36); Mean Corpuscular Hemoglobin 30.2 PG (26-34); Mean Corpuscular Volume 87.6 fL (80-100); Monocytes Absolute Auto 600 /uL (0-900); Monocytes Percent Auto 5.3 % (3-14); Neutrophils Absolute Auto 7800 /uL (1500-7000); Neutrophils Percent Auto 71.5 % (50-75); Platelet Count 229 X10^3/uL (150-400); Red Blood Cell Count 3.98 X10^6/uL (4.0-5.2); Red Cell Distribution Width 13.7 % (11.6-14.8); White Blood Cell Count 10.9 X10^3/uL (4.5-11.0)
[2021-09-10 16:37] LABS: Aspartate Aminotransferase 21 IU/L (14-36); BUN Creatinine Ratio 16.9 (6-22); Blood Urea Nitrogen 12 mg/dL (7-17); Estimated Glomerular Filt Rate > 60 mL/min (>60); Uric Acid 4.8 mg/dL (2.5-6.2)
--- NOTE | 2021-09-10 17:14 | PM.OBTRLD ---
Visit Information Visit Information Date of evaluation: 09/10/21 Primary OB Provider: Tiesha Aguilar On-call OB Provider: Tiesha Aguilar Reason for Evaluation: Yes other Comments/Additional reasons for admission: 36YO @ [id number] referred from clinic for elevated BP. Has had labile BPs w/ normal baseline PET panle. No neurologic sx. Vital Signs Vital Signs: Serial BPs range from 130's-110's/70's-90, not consistently elevated PFSH Medical History (Updated 09/10/21 @ 18:40 by Tiesha Aguilar CNM) Human papilloma virus (~2012) Hypertension affecting in third trimester PCOS (polycystic ovarian syndrome) Vaginal delivery (~03/2019) Surgical History (Updated 09/06/18 @ 22:23 by Cinthia Goldberg) Anesthesia History of dilatation and curettage (~04/2018) Family History (Updated 09/06/18 @ 22:24 by Cinthia Goldberg) Father Hypertension Grandfather Parkinson's disease Social History Smoking Status: Never smoker Review of Systems Review of Systems ROS: Yes All systems reviewed with the patient and are negative except as otherwise documented Exam Vital Signs (past 8 hours): Serial BPs over Presentation: vertex Other: CE not indicated Objective Labs Result Diagrams: 09/10/21 15:56 09/10/21 15:56 Labs: Laboratory Results - last 24 hr 09/10/21 09/10/21 15:56 15:56 WBC 10.9 RBC 3.98 L Hgb 12.0 Hct 34.9 L MCV 87.6 MCH 30.2 MCHC 34.5 RDW 13.7 Plt Count 229 Neut % (Auto) 71.5 Lymph % (Auto) 21.5 L [place] % (Auto) 5.3 Eos % (Auto) 0.9 L Baso % (Auto) 0.8 Neut # (Auto) 7800 H Lymph # (Auto) 2300 [place] # (Auto) 600 Eos # (Auto) 100 Baso # (Auto) 100 BUN 12 Creatinine 0.71 Estimated GFR > 60 BUN/Creatinine Ratio 16.9 Uric Acid 4.8 AST 21 Evaluation Evaluation Baseline heart rate: 125 Variability: Moderate (11-25) monitor accelerations: Present Monitor Decelerations: Absent Contraction Frequency (minutes): 0 Category of Tracing: Reactive Diagnosis, Plan/Disposition Final Diagnosis (1) Elevated blood pressure reading without diagnosis of hypertension: Status: Acute Plan/Disposition Plan: d/c to home with routine precautions. Follow- up in clinic as previously scheduled.
[2021-09-10 17:16] LABS: Creatinine Urine Random 116.3 mg/dL
[2021-09-10 17:17] LABS: Protein (Total) Urine Random < 5 mg/dL (0-12); Protein Creatinine Ratio Urine 0.04 GRAM/24H
== END 2021-09-10 17:14 | disposition home or self-care (01) ==
LOC: LABOR 15:29 → OB 09-15 10:52
PROVIDERS: Family Provider Nurse Practitioner Family; PCP Nurse Practitioner Family; Referring Provider Nurse Practitioner Obstetrics & Gynecology; Visit Provider Nurse Practitioner Obstetrics & Gynecology
DX: O26.893 Other specified pregnancy related conditions, third trimester (principal); R03.0 Elevated blood-pressure reading, without diagnosis of hypertension; Z3A.37 37 weeks gestation of pregnancy
CPT/HCPCS: 36415; 59025; 82570; 84156; 84450; 84550; 85025; G0378; G0379

== ENCOUNTER 2021-09-25 14:02 | Outpatient (CLI) | payer OTHER, SELFPAY ==
[2021-09-25 14:28] LABS: Appearance Urine UA SL CLOUDY; Bilirubin Urine UA NEGATIVE (NEGATIVE); Color Urine UA YELLOW; Glucose Urine UA NEGATIVE (Negative); Ketones Urine UA 1+ (NEGATIVE); Leukocyte Esterase Urine UA TRACE (NEGATIVE); Nitrite Urine UA NEGATIVE (Negative); Occult Blood Urine UA NEGATIVE (Negative); Protein Urine UA TRACE (Negative); Urobilinogen Urine UA 0.2 E.U./dL (0.2)
[2021-09-25 14:40] LABS: Amorphous Sediment Urine 1+; Bacteria Urine Moderate (10-30); RBC Urine None Seen (0-5/HPF); Squamous Epithelial Cell Urine 10-30 /HPF (0-5/HPF); WBC Urine 1-5/HPF (0-5/HPF)
[2021-09-25 14:41] LABS: Culture Indicated Urine Cult Not Indicated
[2021-09-25 14:49] LABS: Add Manual Diff / Slide Review NO; Basophils Absolute Auto 0 /uL (0-100); Basophils Percent Auto 0.6 % (0-2); Eosinophils Absolute Auto 100 /uL (0-450); Eosinophils Percent Auto 1.3 % (2-4); Hemoglobin 11.7 g/dL (12.0-16.0); Lymphocytes Absolute Auto 2000 /uL (1100-4500); Lymphocytes Percent Auto 23.8 % (25-40); Mean Corpuscular HGB Conc 34.3 % (30-36); Mean Corpuscular Hemoglobin 30.2 PG (26-34); Mean Corpuscular Volume 88.1 fL (80-100); Monocytes Absolute Auto 400 /uL (0-900); Neutrophils Absolute Auto 5800 /uL (1500-7000); Neutrophils Percent Auto 69.3 % (50-75); Platelet Count 232 X10^3/uL (150-400); Red Blood Cell Count 3.86 X10^6/uL (4.0-5.2); Red Cell Distribution Width 14.1 % (11.6-14.8); White Blood Cell Count 8.4 X10^3/uL (4.5-11.0)
[2021-09-25 14:58] LABS: Aspartate Aminotransferase 19 IU/L (14-36); BUN Creatinine Ratio 14.1 (6-22); Blood Urea Nitrogen 10 mg/dL (7-17); Estimated Glomerular Filt Rate > 60 mL/min (>60); Uric Acid 4.2 mg/dL (2.5-6.2)
[2021-09-25 16:48] LABS: Uric Acid 4.2 mg/dL (2.5-6.2)
[2021-09-25 16:53] LABS: Creatinine Urine Random 124.9 mg/dL
[2021-09-25 16:58] LABS: Protein (Total) Urine Random < 5 mg/dL (0-12); Protein Creatinine Ratio Urine 0.04 GRAM/24H
--- NOTE | 2021-09-25 17:56 | P.TNLD_ITS ---
Visit Information Visit Information Date of evaluation: 09/25/21 Primary OB Provider: Tiesha Aguilar On-call OB Provider: Diana Roberson Reason for Evaluation: Yes non-stress test Comments/Additional reasons for admission: 36YO @ [id number] referred from clinic for elevated BP.? Has had labile BPs w/ normal baseline PET panel.? No neurologic sx. ? Vital Signs Vital Signs: Initial BP 131/78, then all 110-120's/60's-70's, HR 92bpm, T 36.7C Temporal PFSH Medical History Human papilloma virus (~2012) Hypertension affecting in third trimester PCOS (polycystic ovarian syndrome) Vaginal delivery (~03/2019) Surgical History Anesthesia History of dilatation and curettage (~04/2018) Family History Father Hypertension Grandfather Parkinson's disease Social History Smoking Status: Never smoker Review of Systems Review of Systems ROS: Yes All systems reviewed with the patient and are negative except as otherwise documented Exam Vital Signs (past 8 hours): see above Presentation: vertex Objective Labs Result Diagrams: 09/25/21 14:34 09/25/21 14:34 Labs: Laboratory Results - last 24 hr 09/25/21 09/25/21 09/25/21 14:00 14:00 14:34 WBC RBC Hgb Hct MCV MCH MCHC RDW Plt Count Neut % (Auto) Lymph % (Auto) [place] % (Auto) Eos % (Auto) Baso % (Auto) Neut # (Auto) Lymph # (Auto) [place] # (Auto) Eos # (Auto) Baso # (Auto) BUN Creatinine Estimated GFR BUN/Creatinine Ratio Uric Acid 4.2 AST Urine Color Yellow Urine Appearance Sl cloudy Urine pH 6.0 Ur Specific [place] 1.020 Urine Protein Trace H Urine Glucose (UA) Negative Urine Ketones 1+ H Urine Occult Blood Negative Urine Nitrate Negative Urine Bilirubin Negative Urine Urobilinogen 0.2 Ur Leukocyte Esterase Trace H Urine RBC None seen Urine WBC 1-5/hpf Ur Squamous Epith Cells 10-30 /hpf H Amorphous Sediment 1+ Urine Bacteria Moderate (10-30) H Ur Culture Indicated? Cult not indicated U Random Total Protein < 5 Urine Creatinine 124.9 Protein/Creatinin Ratio 0.04 09/25/21 09/25/21 14:34 14:34 WBC 8.4 RBC 3.86 L Hgb 11.7 L Hct 34.0 L MCV 88.1 MCH 30.2 MCHC 34.3 RDW 14.1 Plt Count 232 Neut % (Auto) 69.3 Lymph % (Auto) 23.8 L [place] % (Auto) 5.0 Eos % (Auto) 1.3 L Baso % (Auto) 0.6 Neut # (Auto) 5800 Lymph # (Auto) 2000 [place] # (Auto) 400 Eos # (Auto) 100 Baso # (Auto) 0 BUN 10 Creatinine 0.71 Estimated GFR > 60 BUN/Creatinine Ratio 14.1 Uric Acid 4.2 AST 19 Urine Color Urine Appearance Urine pH Ur Specific [place] Urine Protein Urine Glucose (UA) Urine Ketones Urine Occult Blood Urine Nitrate Urine Bilirubin Urine Urobilinogen Ur Leukocyte Esterase Urine RBC Urine WBC Ur Squamous Epith Cells Amorphous Sediment Urine Bacteria Ur Culture Indicated? U Random Total Protein Urine Creatinine Protein/Creatinin Ratio Evaluation Evaluation Baseline heart rate: 135 Variability: Moderate (11-25) monitor accelerations: Present Monitor Decelerations: Absent Contraction Frequency (minutes): 5 Uterine Contraction Intensity: Mild Category of Tracing: Reactive Comments: CE deferred Diagnosis, Plan/Disposition Final Diagnosis (1) Elevated blood pressure reading without diagnosis of hypertension: Status: Acute Plan/Disposition Plan: D/c to home with routine precautions. RTC weekly as scheduled. OB Disposition: home
== END 2021-09-25 15:55 | disposition home or self-care (01) ==
LOC: LABOR 14:43 → OB 09-26 07:25
PROVIDERS: Family Provider Nurse Practitioner Family; PCP Nurse Practitioner Family; Referring Provider Nurse Practitioner Obstetrics & Gynecology; Visit Provider Nurse Practitioner Obstetrics & Gynecology
DX: O26.893 Other specified pregnancy related conditions, third trimester (principal); R03.0 Elevated blood-pressure reading, without diagnosis of hypertension; Z3A.39 39 weeks gestation of pregnancy
CPT/HCPCS: 36415; 59025; 81001; 82570; 84156; 84450; 84550; 85025; G0378; G0379

== ENCOUNTER 2021-10-05 06:34 | Inpatient (IN) | payer OTHER, SELFPAY ==
--- NOTE | 2021-10-05 06:54 | P.HPOB_ITS ---
OB HPI Date/Time Date of admission: 10/05/21 Date Patient Seen: 10/05/21 Time Patient Seen: 06:55 History of Present Condition Chief complaint: labor : 3 Para: 1 Estimated Date of Delivery: 09/30/21 Estimated Gestational Age (weeks): 40.5 Narrative: Nu Harris is a 36 year old female at 40w5d by early ultrasound here for evaluation of early labor. Contractions started around 11:30pm last night, ~10 mins apart through the night. Slept intermittently. Contractions have progressed in frequency and intensity in the past hour. Lost her mucus plug two days ago, no leakage of vaginal fluid today. No headache, vision changes, RUQ, new edema. Uncomplicated care with the exception of labile blood pressures with recurrent normal serial blood pressures and labs. Desires low intervention but open to epidural. Support person is , Joaquim. History of Present care: good care, initiated at week # (11wks), number of visits (14) and pounds weight gain (34) Dating criteria: LMP confirmed by 1st trimester US Ultrasounds: normal 1st trimester US and normal mid trimester US Obstetrical complications: none Narrative: On low dose ASA from 12 to 36 wks gestation due to hx of gestational hypertension. Labile blood pressures throughout this but pre-eclampsia labs have been WNL. Preadmission Labs Blood type: AB (+) positive -: Antibody screen: negative, GBS status: negative, HBsAG: negative, HIV: ne gative and RPR/VDLR: negative -: Chlamydia screen: not detected and Gonorrhea screen: not detected -: Rubella: immune and Varicella: not immune HCT: 34 HCAB: negative Cell-free DNA: Negative, male Narrative: 2hr gtt: 87/127/112 Prior (ies) History: 04/01/2019 NSVB @ 39wks, IOL for GHTN, epidural, 6#4oz female, 1st degree laceration SAB @ 10wks Evaluation Evaluation Baseline heart rate: 135 Variability: Moderate (11-25) monitor accelerations: Present Monitor Decelerations: Absent Contraction Frequency (minutes): 4 Uterine Contraction Intensity: Strong/Firm Status: Category l Dilation (cm): 4 Effacement (%): 75 station: -2 Position of cervix: posterior Consistency: medium PFSH Medical History Human papilloma virus (~2012) Hypertension affecting in third trimester PCOS (polycystic ovarian syndrome) Vaginal delivery (~03/2019) Surgical History Anesthesia History of dilatation and curettage (~04/2018) Family History Father Hypertension Grandfather Parkinson's disease Social History Smoking Status: Never smoker Meds Home Medications and Allergies Home Medications Medication Instructions Recorded Confirmed Type vitamins no.121-iron 28 1 tab PO DAILY 08/24/18 09/07/19 History mg-folic acid 800 mcg tablet Double Electric Breast Pump and #1 ea 12/07/18 09/07/19 Rx supplies Allergies Allergy/AdvReac Type Severity Reaction Status Date / Time codeine Allergy Intermediate cold sweats Verified 09/07/19 09:30 Penicillins Allergy Intermediate rash Verified 09/07/19 09:30 acetaminophen [From Vicodin] AdvReac Intermediate Cold sweats Verified 09/07/19 09:30 hydrocodone [From Vicodin] AdvReac Intermediate Cold sweats Verified 09/07/19 09:30 Review of Systems Review of Systems ROS: Yes All systems reviewed with the patient and are negative except as otherwise documented OB Exam Resp Effort & Inspection: normal respiratory effort Auscultation: clear to auscultation bilaterally Cardio Rate: regular rate Rhythm: regular rhythm Heart Sounds: S1 normal and S2 normal Presentation: vertex Assessment and Plan Assessment and Plan Assessment and Plan narrative: A: Term primipara Active labor Labile BPs No indication for GBS prophylaxis Cat I FHR P: Admit, routine orders with repeat preeclampsia panel. Labor support PRN. May switch to intermittent auscultation. Reassess in 4hours or sooner, PRN. Time Spent with Patient Total time spent with greater than 50% in coordination of care (as documented) at patient's floor/unit and/or counseling patient:: 15-24 minutes
[2021-10-05] MEDS: LACTATED RINGERS 1,000 ML 100 ML IV (07:50)
[2021-10-05 08:00] LABS: Add Manual Diff / Slide Review NO; Basophils Absolute Auto 0 /uL (0-100); Basophils Percent Auto 0.4 % (0-2); Eosinophils Absolute Auto 200 /uL (0-450); Eosinophils Percent Auto 1.7 % (2-4); Hematocrit 36.2 % (36-46); Hemoglobin 12.6 g/dL (12.0-16.0); Lymphocytes Absolute Auto 2500 /uL (1100-4500); Lymphocytes Percent Auto 25.8 % (25-40); Mean Corpuscular HGB Conc 34.7 % (30-36); Mean Corpuscular Hemoglobin 30.3 PG (26-34); Mean Corpuscular Volume 87.5 fL (80-100); Monocytes Absolute Auto 700 /uL (0-900); Monocytes Percent Auto 7.6 % (3-14); Neutrophils Absolute Auto 6200 /uL (1500-7000); Neutrophils Percent Auto 64.5 % (50-75); Platelet Count 243 X10^3/uL (150-400); Red Blood Cell Count 4.14 X10^6/uL (4.0-5.2); Red Cell Distribution Width 14.7 % (11.6-14.8); White Blood Cell Count 9.6 X10^3/uL (4.5-11.0)
[2021-10-05 08:02] LABS: COVID19 -Nasal RAPID Negative (Negative)
[2021-10-05 08:15] VITALS: BP 132/87
[2021-10-05 08:33] LABS: Aspartate Aminotransferase 19 IU/L (14-36); BUN Creatinine Ratio 15.6 (6-22); Blood Urea Nitrogen 10 mg/dL (7-17); Estimated Glomerular Filt Rate > 60 mL/min (>60); Uric Acid 4.3 mg/dL (2.5-6.2)
[2021-10-05] MEDS: FENT 2MCG/ML BUPIV 0.125% EPI 200 MCG/100 ML PLAST..BAG 8 MCG EPIDURAL ×2 (08:49→15:30)
[2021-10-05 08:51] LABS: Creatinine Urine Random 309.6 mg/dL; Protein (Total) Urine Random 22 mg/dL (0-12); Protein Creatinine Ratio Urine 0.07 GRAM/24H
--- NOTE | 2021-10-05 11:01 | PM.OBPNLAB ---
Date/Time Date Patient Seen: 10/05/21 Time Patient Seen: 11:02 Pain Control Pain control: epidural Comments: Pt resting comfortably with adequate pain relief from epidural. Has been able to nap intermittently. Complains of generalized pruritus. Declines AROM at this time. VS: 116/58, 82 bpm, 94% o2sat, 35.7 C Pelvic Exam Dilation (cm): 6 Effacement (%): 80 station: 0 Amniotic membrane status: Intact Contractions Monitor mode: External Pitocin rate (mU/min): 0 Contraction frequency (min): 3 Contraction duration (min): 1 Contraction pattern: Regular Contraction intensity: Strong/Firm Status status: Category l Heart Rate Baseline: 130 Monitor Accelerations: Present Monitor Decelerations: Absent Monitor Variability: Moderate Assessment and Plan Assessment: active labor Plan: continuous present management Comments: Continued labor support PRN and frequent position changes. Nubain ordered for pruritus. Reassess in 4 hrs or sooner PRN.
[2021-10-05] MEDS: NALBUPHINE 20 MG/ML AMPUL 5 MG IV (11:04)
--- NOTE | 2021-10-05 15:25 | PM.OBPNLAB ---
Date/Time Date Patient Seen: 10/05/21 Time Patient Seen: 15:26 Pain Control Pain control: epidural Comments: Coping well with adequate epidural anesthesia. Requested AROM 1330 which was performed for a small amount of clear fluid. Now reporting feeling like she might be pushing. VS: BP 131/84mmhg, HR 93bpm, T 35.9C Temporal Pelvic Exam Dilation (cm): 9 Effacement (%): 100 station: 0 Amniotic membrane status: Leaking Contractions Monitor mode: External Contraction frequency (min): 3 Contraction pattern: Regular Contraction intensity: Strong/Firm Status status: Category ll (overall reassuring) Heart Rate Baseline: 135 Monitor Accelerations: Present Monitor Decelerations: Variable Monitor Variability: Moderate Assessment and Plan Assessment: active labor Plan: continuous present management Comments: Reassess in 2 hours or sooner, PRN.
[2021-10-05] MEDS: CALCIUM CARBONATE 500 MG TAB 1000 MG PO (15:27)
--- NOTE | 2021-10-05 17:27 | PM.OBPRVD ---
Events: Labor Augmentation (AROM) Labor & Delivery Delivery date: 10/05/21 Intrapartal Events: None Cervical ripening method: none Induction method: none Delivery augmentation: rupture of membranes Delivery monitor: external FHT and external uterine Route of delivery: Episiotomy description: None L&D Laceration Description: Vaginal - 1st Degree Delivery repair: chromic (3.0) Quantitative Blood Loss: 300 Anesthesia Type: Epidural Narrative: Pt had ongoing adequate pain control with epidural anesthesia. Pt had one episode of vomiting followed by increased rectal pressure. Exam at that time revealed 10cm/100%/+1. Coached through pushing efforts with steady descent of vertex. NSVB of vigorous baby boy in ROP with no nuchal cord and easily delivered shoulders. [place] was placed on maternal abdomen. Pitocin was started for active management per protocol. Delayed cord clamping until cessation of pulsation, cord double clamped by SNM and cut by FOB. Cord blood collected. Gentle traction of the cord led to delivery of apparent intact Hernandez placenta, membranes, and three vessel cord. Fundus was firm and at the umbilicus immediately following. 1st degree perineal laceration was noted and repaired with 3-0 chromic in the usual fashion. Total QBL 300 mL. Both mother and stable and skin to skin as I left the room. Baby 1: Infant gender: Male Presentation: vertex Position: Right Occiput Posterior Placenta delivery description: Spontaneous and Normal Configuration Cord Vessel Description: 3 Vessels score (1 min): 9 score (5 min): 9 weight: 4.014 kg Plan for aftercare: Routine care
[2021-10-05] MEDS: KETOROLAC 30 MG/ML VIAL IV (19:51)
[2021-10-05] MEDS: DERMOPLAST SPRAY 20% 60 ML 1 SPRAY TOP (19:51)
[2021-10-06] MEDS: ACETAMINOPHEN 325 MG TABLET 650 MG PO ×3 (01:00→14:05)
[2021-10-06] MEDS: IBUPROFEN 600 MG TABLET PO ×3 (01:44→14:04)
[2021-10-06 08:04] VITALS: TEMP 36.2
--- NOTE | 2021-10-06 08:59 | P.DS_ITS ---
Discharge Providers Provider Date of admission: 10/05/21 06:34 Discharge Date: 10/06/21 Primary care physician: GALDINO Modi Consults: 10/06/21 17:24 Consult to Ict Customer Support Officer Routine Comment: Discharge provider: Tiesha Aguilar CNM Summary Hospital Course Date Patient Seen: 10/06/21 Time Patient Seen: 08:59 Diagnoses: 70.0 Hospital Course: PPD1: Stable s/p NSVB 10/05/21 @ 1655 with a 1st degree vaginal laceration. Voiding, ambulating and independently. Peripartum Data Delivery Method: Natural Vaginal Laceration Description: Vaginal - 1st Degree Episiotomy description: None 1: Gender: Male Disposition of : home Discharge Diagnosis (1) First degree perineal laceration during delivery: Start Date: 10/05/21 Status: Acute Problem Details: routine PP course Status at Discharge Cognitive/behavioral status at discharge: oriented and calm Functional status at discharge: independent ambulation Overall status at discharge: patient is back to baseline Time Spent with Patient Time attestation: Total time spent providing and/or coordinating discharge services: Time spent: Less than 30 minutes Objective Labs Result Diagrams: 10/05/21 07:30 10/05/21 08:16 Labs: Laboratory Results - last 24 hr 10/05/21 07:30 Blood Type AB Positive Exam Vital Signs (past 8 hours): - 10/06/21 08:04 Temperature 97.2 F L BP 122/82mmHg, HR 82bpm, RR 16/min, T 97.2F Temporal Other: Fundus firm @ U-1, lochia scant, no clots, perineum mildly edematous Discharge Plan Discharge Plan Patient Disposition: Home Discharge orders & Medications Prescriptions: New ibuprofen 600 mg Tablet 600 mg PO Q6HR PRN (Reason: Pain, Mild (1-3)) 60 Days Qty: 14 0RF Continued PNV no.[id number]-flli-[id number] acid 28 mg iron- 800 mcg tablet 1 tab PO DAILY Follow up/Referrals: Alisha Friedman ARNP [Primary Care Provider] - Tiesha Aguilar CNM [[employer]ician] - (Follow-up by Telehealth 10/18/2021 @ 0840 Follow-up in office 11/15/2021 @ 0813) Diet/Activity/Treatments Diet: Diet as Tolerated and Regular Activity: pelvic rest x 6 weeks Skin/Wound/Dressing Care Report to your healthcare provider any signs of infection, such as:: chills, fever, increased pain, unusual drainage and unusual redness Visit Report/Discharge Packet Instructions: Depression Discharge Data Primary Care Provider: Alisha Friedman
[2021-10-06 12:49] VITALS: BP 134/82; PULSE 76; RESP 16; TEMP 36.8
[2021-10-06 14:05] VITALS: TEMP 36.6
== END 2021-10-06 14:10 | disposition home or self-care (01) | DRG 807 ==
PROVIDERS: Admitting Provider Nurse Practitioner Obstetrics & Gynecology; Family Provider Nurse Practitioner Family; PCP Nurse Practitioner Family; Referring Provider Nurse Practitioner Obstetrics & Gynecology; Visit Provider Nurse Practitioner Obstetrics & Gynecology
DX: O48.0 Post-term pregnancy (principal); Z37.0 Single live birth; Z3A.40 40 weeks gestation of pregnancy; O70.0 First degree perineal laceration during delivery; O26.893 Other specified pregnancy related conditions, third trimester; L29.9 Pruritus, unspecified; Z20.822 Contact with and (suspected) exposure to COVID-19
CPT/HCPCS: 01967; 36415; 59050; 82570; 84156; 84450; 84550; 85025; 86850; 86900; 86901; 87635; C9803; G0379; J1885; J2300